=== PATIENT | male | born 1995 | race Caucasian/White ===

== ENCOUNTER 2020-05-27 18:42 | Emergency (ER) | payer OTHER ==
[~2020-05-27] VITALS: Ht 177.8 cm; Wt 60.3 kg
[2020-05-27] MEDS ORDERED: SYNTHROID25 MC1 PO (19:07)
[2020-05-27] MEDS ORDERED: PROTONIX40 M2 PO (19:07)
[2020-05-27] MEDS ORDERED: imodium (19:08)
[2020-05-27] MEDS ORDERED: PEPTO-BISMOL262 M1 (19:08)
[2020-05-27 19:26] LABS: HEMATOCRIT 46.9 % (42.0-52.0); MCH 29.6 pg (26.0-34.0); MCHC 34.2 g/dL (28.0-37.0); MCV 86.7 fL (80.0-100.0); PLATELET COUNT 238 thou/uL (150-400); RBC 5.41 mil/uL (4.50-6.00); RDW 14.2 % (10.5-14.5); WBC 6.3 thou/uL (4.0-11.0)
[2020-05-27 19:28] LABS: URINE BILIRUBIN NEGATIVE (Negative); URINE BLOOD NEGATIVE (Negative); URINE CLARITY CLEAR; URINE COLOR YELLOW; URINE GLUCOSE-RANDOM* NEGATIVE (Negative); URINE KETONES NEGATIVE (Negative); URINE LEUKOCYTES-REFLEX NEGATIVE (Negative); URINE NITRITE-REFLEX NEGATIVE (Negative); URINE PROTEIN (DIPSTICK) NEGATIVE (Negative); URINE SPECIFIC GRAVITY 1.015 (1.005-1.035); URINE UROBILINOGEN 0.2 E.U./dl (0.2-1.0)
[2020-05-27 19:36] LABS: CALCIUM 9.4 mg/dL (8.5-10.1); POTASSIUM 3.5 mmol/L (3.5-5.1)
[2020-05-27 19:42] LABS: ALBUMIN 4.1 g/dL (3.4-5.0); TOTAL BILIRUBIN 0.4 mg/dL (0.2-1.0); TOTAL PROTEIN 8.4 g/dL (6.4-8.2)
[2020-05-27 19:55] LABS: ABSOLUTE NEUTROPHILS 2.5 thou/uL (1.4-8.2); PLATELET ESTIMATE NORMAL
[2020-05-27] MEDS ORDERED: PEPCID20 MG PO (20:05)
[2020-05-27 20:37] VITALS: BP 119/74
== END 2020-05-27 20:40 | disposition home or self-care (01) ==
LOC: ER 18:42
PROVIDERS: Emergency Medicine
DX: R10.84 Generalized abdominal pain (principal); K21.9 Gastro-esophageal reflux disease without esophagitis; E03.9 Hypothyroidism, unspecified; Z79.899 Other long term (current) drug therapy

== ENCOUNTER 2020-10-25 12:20 | Emergency (ER) | payer OTHER ==
[~2020-10-25] VITALS: Ht 177.8 cm; Wt 61.2 kg
[~2020-10-25 12:20] MED LIST: PEPCID20 MG PO; PEPTO-BISMOL262 M1; PROTONIX40 M2 PO; SYNTHROID25 MC1 PO; imodium
[2020-10-25] MEDS ORDERED: AMPHETAMINE SAL10 MG PO (12:32)
[2020-10-25] MEDS ORDERED: CELEXA 10 MG TA10 M1 PO (12:33)
[2020-10-25 13:10] LABS: HEMOGLOBIN 14.7 gm/dL (14.0-18.0); RDW 13.7 % (10.5-14.5)
[2020-10-25 13:11] LABS: ABSOLUTE NEUTROPHILS 3.1 thou/uL (1.4-8.2); BASOPHILS 0.8 % (0.0-2.0); EOSINOPHILS 1.3 % (0.0-3.0); HEMATOCRIT 43.8 % (42.0-52.0); LYMPHOCYTES 28.3 % (24.0-44.0); MCH 28.7 pg (26.0-34.0); MCHC 33.7 g/dL (28.0-37.0); MCV 85.4 fL (80.0-100.0); MONOCYTES 7.5 % (1.0-8.0); PLATELET COUNT 223 thou/uL (150-400); POLYS 62.1 % (36.0-66.0); RBC 5.13 mil/uL (4.50-6.00)
[2020-10-25 13:21] LABS: CALCIUM 9.5 mg/dL (8.5-10.1); CREATININE 1.2 mg/dL (0.7-1.3); POTASSIUM 3.7 mmol/L (3.5-5.1)
[2020-10-25 13:34] LABS: ALBUMIN 4.3 g/dL (3.4-5.0); DIRECT BILIRUBIN 0.2 mg/dL (<0.1-0.2); TOTAL BILIRUBIN 0.9 mg/dL (0.2-1.0); TOTAL PROTEIN 8.1 g/dL (6.4-8.2)
[2020-10-25] MEDS ORDERED: ZOFRAN ODT4 MG PO (14:21)
[2020-10-25 14:28] VITALS: BP 124/76
== END 2020-10-25 14:30 | disposition home or self-care (01) ==
LOC: ER 12:20
PROVIDERS: Emergency Medicine
DX: R11.0 Nausea (principal); R10.13 Epigastric pain; K21.9 Gastro-esophageal reflux disease without esophagitis; E03.9 Hypothyroidism, unspecified; Z79.899 Other long term (current) drug therapy